=== PATIENT | male | born 1940 | race Two or more races ===

== ENCOUNTER 2024-07-09 21:09 | Emergency (ER) | payer OTHER ==
[~2024-07-09] VITALS: Ht 162.6 cm; Wt 63.5 kg
[2024-07-09] MEDS ORDERED: FAMOtidine 10 MG/ML (4ML VIAL) IV PUSH ONE (23:00)
[2024-07-09] MEDS ORDERED: FAMOTIDINE/PF 20 MG/2 ML VIAL ONE (23:05)
[2024-07-10 00:01] LABS: HEMATOCRIT 39.2 % (39.0-48.0); HEMOGLOBIN 13.6 g/dL (13-16.00); MEAN CELL VOLUME 91.5 fL (80.0-100.00); MEAN CORPUSCULAR HEMOGLOBIN 31.7 pg (27.00-32.0); MEAN CORPUSCULAR HGB CONC 34.6 g/dl (32.0-36.0); PLATELET COUNT 201 K/uL (150-450); RED BLOOD COUNT 4.28 M/uL (4.00-6.00); RED CELL DISTRIBUTION WIDTH 13.8 % (11.5-14.5)
[2024-07-10 00:07] LABS: ALBUMIN 3.7 gm/dL (3.4-5.0); BILIRUBIN TOTAL 0.86 mg/dL (0.3-1.2); CALCIUM 9.3 mg/dL (8.5-10.1); CREATININE SERUM 1.02 mg/dL (0.70-1.30); GFR 69.58; GLOBULINA 4.6 G/DL (2.4-3.5); POTASSIUM 4.26 mEq/L (3.5-5.1); TOTAL PROTEIN 8.3 gm/dL (6.4-8.2)
[2024-07-10] MEDS ORDERED: 0.9 % SODIUM CHLORIDE 1,000 ML IV STA (00:49)
[2024-07-10] MEDS ORDERED: NITROGLYCERIN 0.4 MG TAB.SUBL SL STA (00:52)
[2024-07-10] MEDS ORDERED: NITROGLYCERIN 50MG IN NSS (KIT INCLUYE LINEA) IV STA (00:53)
[2024-07-10] MEDS ORDERED: ASPIRIN 81 MG TAB.CHEW PO STA (00:54)
[2024-07-10] MEDS ORDERED: NITROGLYCERIN IN 5 % DEXTROSE 50 MG/250 ML BOTTLE IV ONE (00:57)
[2024-07-10] MEDS ORDERED: CLOPIDOGREL BISULFATE 75 MG TABLET PO STA (00:58)
[2024-07-10] MEDS ORDERED: CLOPIDOGREL BISULFATE 75 MG TABLET PO ONE (01:03)
[2024-07-10] MEDS ORDERED: ONDANSETRON HCL 2 MG/ML VIAL ONE (01:10)
[2024-07-10] MEDS ORDERED: ONDANSETRON HCL 2 MG/ML VIAL IV STA (01:12)
[2024-07-10] MEDS ORDERED: FAMOtidine 10 MG/ML (4ML VIAL) IV PUSH STA (01:12)
[2024-07-10] MEDS ORDERED: ATORVASTATIN CALCIUM 20 MG TABLET PO STA (01:48)
[2024-07-10 02:36] LABS: CHOL HDL RATIO 3.5 (0-5.0)
[2024-07-10 07:59] LABS: ABG PH 7.438 (7.35-7.45); ABG PO2 98.1 mmHg (80-100); ABG pCO2 35.4 mmHg (35-45); BASE EXCESS -0.2 mmol/l; BICARBONATE 23.4 mmol/l (23-25); SaO2 97.8 %; Tco2 24.5 mmol/l
[2024-07-10 08:59] LABS: allen test SATISFACTORY; mode NASAL CANNULA; o2 32 %; puncture site RADIAL RIGHT
== END 2024-07-10 11:01 | disposition designated cancer center or children's hospital (05) ==
LOC: ER 21:10
PROVIDERS: General Practice
DX: R10.9 Unspecified abdominal pain (principal); R10.13 Epigastric pain
CPT/HCPCS: 36415; 71045; 82803; 93005; 93041; 94760; 96365; 96366; 99285; J2405; J3490 ×3; J7030